=== PATIENT | female | born 1950 | race African-American/Black ===

== ENCOUNTER 2021-10-29 13:14 | Emergency (ER) | payer MEDICARE, MEDICAID ==
[~2021-10-29] VITALS: Ht 167.6 cm; Wt 80.0 kg
[2021-10-29 13:19] VITALS: BP 140/86
[2021-10-29] MEDS ORDERED: PREDNISONE 20MG TABLET PO STA (14:25)
[2021-10-29] MEDS ORDERED: ALBUTEROL (0.083%) 2.5MG/3ML NEB HHN STA (14:25)
[2021-10-29] MEDS ORDERED: IPRATROPIUM BROMIDE (0.02%) 0.5MG/2.5ML NEB HHN STA (14:25)
[2021-10-29] MEDS ORDERED: P50 MT (18:24)
[2021-10-29] MEDS ORDERED: ALBU6.7H9 INH (18:24)
== END 2021-10-29 20:04 | disposition home or self-care (01) ==
LOC: ER 13:14
DX: J44.9 Chronic obstructive pulmonary disease, unspecified (principal); F17.210 Nicotine dependence, cigarettes, uncomplicated; I10 Essential (primary) hypertension; Z88.2 Allergy status to sulfonamides
CPT/HCPCS: 71045; 94640; 99283; J7512; Z7610